=== PATIENT | male | born 1950 | race Caucasian/White ===

== ENCOUNTER 2017-06-23 10:38 | Emergency (ER) | payer MEDICARE ==
[2017-06-23] MEDS: IPRATRPIUM/ALBUTEROL 0.5/2.5MG 3 ML NEBU. NEB ×2 (11:34)
[2017-06-23 11:42] LABS: INFLUENZA A PATIENT NEGATIVE (NEGATIVE); INFLUENZA B PATIENT NEGATIVE (NEGATIVE); OBC FLU VALID
[2017-06-23 12:12] LABS: BILIRUBIN,URINE SMALL (NEG); CLARITY,URINE CLEAR; COLOR,URINE AMBER; GLUCOSE,URINE NEGATIVE (NEG); NITRITE,URINE NEGATIVE (NEG); PH,URINE 5.5; PROTEIN,URINE NEGATIVE (NEG-TRACE); UROBILINOGEN,URINE 0.2 mg/dL (0.2 mg/dL)
[2017-06-23 12:24] LABS: BACTERIA,URINE 0 /HPF (0-FEW); RBC,URINE 0 /HPF (0-2); SQUAMOUS EPITHELIAL CELL,UR FEW /LPF; WBC,URINE 0 /HPF (0-4)
== END 2017-06-23 12:38 | disposition home or self-care (01) ==
LOC: ER 10:38
DX: B34.9 Viral infection, unspecified (principal); E11.9 Type 2 diabetes mellitus without complications; Z96.652 Presence of left artificial knee joint; Z88.1 Allergy status to other antibiotic agents
CPT/HCPCS: 71046; 81001; 87804; 87804-59; 94640; 99285-25; J7620

== ENCOUNTER 2018-11-24 12:02 | Emergency (ER) | payer MEDICARE ==
[~2018-11-24] VITALS: Ht 182.9 cm; Wt 93.9 kg
[~2018-11-24 12:02] MED LIST: ALBU2.5V8 INH; LEVO500T59 PO; ONDA4TAB10 SL; PRED50TA PO
[2018-11-24 12:10] VITALS: BP 164/87
--- NOTE | 2018-11-24 12:35 | PHYS DOC ---
Past Medical History Past Medical History: Diabetes-Type II Past Surgical History: Knee Replacement Additional Past Surgical Histo: L knee replacement, bx shoulder Alcohol Use: Occasionally Drug Use: None Adult General Chief Complaint Chief Complaint: LOWER BACK PAIN OR INJURY HPI HPI Patient is a 68 year old male who presents with right lower back pain that hurts more with movement for the last 3 weeks. Patient he called his primary care Dr. Rubin who stated to come to the emergency room for imaging. Review of Systems Review of Systems Constitutional: Denies fever or chills [] Eyes: Denies change in visual acuity, redness, or eye pain [] HENT: Denies nasal congestion or sore throat [] Respiratory: Denies cough or shortness of breath [] Cardiovascular: No additional information not addressed in HPI [] GI: Denies abdominal pain, nausea, vomiting, bloody stools or diarrhea [] : Denies dysuria or hematuria [] Musculoskeletal: Right low back pain or joint pain [] Integument: Denies rash or skin lesions [] Neurologic: Denies headache, focal weakness or sensory changes [] Endocrine: Denies polyuria or polydipsia [] All other systems were reviewed and found to be within normal limits, except as documented in this note. Allergies Allergies Allergies Coded Allergies Type Severity Reaction Last Updated Verified Tetracyclines Allergy Intermediate 06/23/17 No Physical Exam Physical Exam Constitutional: Well developed, well nourished, no acute distress, non-toxic appearance. [] HENT: Normocephalic, atraumatic, bilateral external ears normal, oropharynx moist, no oral exudates, nose normal. [] Eyes: PERRLA, EOMI, conjunctiva normal, no discharge. [] Neck: Normal range of motion, no tenderness, supple, no stridor. [] Cardiovascular:Heart rate regular rhythm, no murmur [] Lungs & Thorax: Bilateral breath sounds clear to auscultation [] Abdomen: Bowel sounds normal, soft, no tenderness, no masses, no pulsatile masses. [] Skin: Warm, dry, no erythema, no rash. [] Back: No tenderness, no CVA tenderness. [] Extremities: No tenderness, no cyanosis, no clubbing, ROM intact, no edema. [] Neurologic: Alert and oriented X 3, normal motor function, normal sensory function, no focal deficits noted. [] Psychologic: Affect normal, judgement normal, mood normal. Normal Physical Exam[] Current Patient Data Vital Signs Vital Signs Date Time Temp Pulse Resp B/P (MAP) Pulse Ox O2 Delivery O2 Flow Rate FiO2 11/24/18 12:10 97.6 73 14 164/87 (112) 96 Room Air 97.6 EKG EKG [] Radiology/Procedures Radiology/Procedures [] Impressions: [facility] [address] [place] [address] IMAGING REPORT Signed PATIENT: DARLENE SINCLAIR ACCOUNT: [id number] : 1950 LOCATION: ER AGE: 68 SEX: M EXAM STATUS: REG ER ORD. PHYSICIAN: ELIAS WALL APRN REASON: RIGHT SIDED, LOWER BACK PAIN x 3 weeks, PROCEDURE: CT LUMBAR SPINE WO CONTRAST CT study of the lumbar spine without contrast Clinical indications: Right-sided lower back pain for 3 weeks. TECHNIQUE: Noncontrast helical CT scanning of the lumbar spine was performed. Multiplanar 2-D reconstructions were generated. PQRS compliance Statement One or more of the following individualized dose reduction techniques were utilized for this study: 1. Automated exposure control 2. Adjustment of the mA and/or kV according to patient size 3. Use of iterative reconstruction technique FINDINGS: The transverse processes are intact. No compression fracture or discitis or lytic process is evident. Grade 1 anterolisthesis of L5-S1 is seen which measures 8 mm. This is secondary to bilateral spondylolysis of L5. There is a diffuse disc protrusion at this level. There is severe narrowing of the right neural foramen and moderate to severe narrowing of the left neural foramen at this. There is a diffuse disc protrusion at L2-3 which is more prominent on the left side extending into the inferior aspect of the left neural foramen. There is a mild spinal canal stenosis at this level. There is a mild to moderate spinal canal stenosis at L3-4. Diffuse disc protrusion is seen at this level. At L4-5, there is a moderate to severe spinal canal stenosis. There is a mild diffuse disc protrusion more prominent on the left side. There is moderate narrowing of the neural foramina bilaterally at this level. IMPRESSION: No acute compression fracture. Grade 1 anterolisthesis of L5-S1 secondary to bilateral spondylolysis of L5. Additional findings as discussed above. See discussion above for each level. Electronically signed by: Jerad Tellez MD (11/24/2018 1:08 PM) [facility] DICTATED and SIGNED BY: JERAD TELLEZ MD DATE: 11/24/18 1309 Course & Med Decision Making Course & Med Decision Making Patient is a 68 year old male who presents with right lower back pain that hurts more with movement for the last 3 weeks. Patient he called his primary care Dr. Rubin who stated to come to the emergency room for imaging. Patient states he's been taking naproxen which makes the pain better. Patient states he woke up this morning with stabbing pain in his back. Patient states this pain does not radiate. He denies dysuria, fever, injury. Patient states he's been going to his chiropractor that was helping the back pain. Pain is worse with movement. There is no tenderness to palpation of the lower back and there is no spinal tenderness. Patient denies any numbness or tingling, chest pain, shortness of breath. Skin pink warm and dry. Patient is ambulatory with a steady gait. No loss of bowel or bladder. He speaks in full clear sentences. Patient currently room rating his pain at a 6 out of 10. Patient did drive himself to the hospital. CT shows Grade 1 anterolisthesis of L5-S1 secondary to bilateral spondylolysis of L5. Patient is to follow up with his primary care for continuation of care. Dragon Disclaimer Dragon Disclaimer This electronic medical record was generated, in whole or in part, using a voice recognition dictation system. Departure Departure Impression: Primary Impression: Back pain Disposition: 01 HOME, SELF-CARE Condition: STABLE Referrals: JORGE SHANE (PCP) Patient Instructions: Back Pain, Adult Additional Instructions: Call your primary care provider for continuation of care. Take naproxen and try using a heating pad. Scripts Naproxen (NAPROXEN) 500 Mg Tablet. 1 TAB PO BID, #20 TAB 1 Refill Prov: DUKEELIASLELE nErique APRN 11/24/18 Problem Qualifiers Primary Impression: Back pain Back pain location: low back pain Chronicity: acute Back pain laterality: right Sciatica presence: without sciatica Qualified Codes: M54.5 - Low back pain ELIAS WALL [employer] Nov 24, 2018 12:35
--- NOTE | 2018-11-24 13:11 | RAD ---
CT study of the lumbar spine without contrast Clinical indications: Right-sided lower back pain for 3 weeks. TECHNIQUE: Noncontrast helical CT scanning of the lumbar spine was performed. Multiplanar 2-D reconstructions were generated. PQRS compliance Statement One or more of the following individualized dose reduction techniques were utilized for this study: 1. Automated exposure control 2. Adjustment of the mA and/or kV according to patient size 3. Use of iterative reconstruction technique FINDINGS: The transverse processes are intact. No compression fracture or discitis or lytic process is evident. Grade 1 anterolisthesis of L5-S1 is seen which measures 8 mm. This is secondary to bilateral spondylolysis of L5. There is a diffuse disc protrusion at this level. There is severe narrowing of the right neural foramen and moderate to severe narrowing of the left neural foramen at this. There is a diffuse disc protrusion at L2-3 which is more prominent on the left side extending into the inferior aspect of the left neural foramen. There is a mild spinal canal stenosis at this level. There is a mild to moderate spinal canal stenosis at L3-4. Diffuse disc protrusion is seen at this level. At L4-5, there is a moderate to severe spinal canal stenosis. There is a mild diffuse disc protrusion more prominent on the left side. There is moderate narrowing of the neural foramina bilaterally at this level. IMPRESSION: No acute compression fracture. Grade 1 anterolisthesis of L5-S1 secondary to bilateral spondylolysis of L5. Additional findings as discussed above. See discussion above for each level. Electronically signed by: Richard Tellez MD (11/24/2018 1:08 PM) [facility]
[2018-11-24] MEDS ORDERED: NAPR500T8 PO (13:35)
== END 2018-11-24 13:47 | disposition home or self-care (01) ==
LOC: ER 12:02
DX: M54.5 Low back pain (principal); M43.06 Spondylolysis, lumbar region; E11.9 Type 2 diabetes mellitus without complications; Z96.652 Presence of left artificial knee joint; Z88.1 Allergy status to other antibiotic agents
CPT/HCPCS: 72131; 99284-25